=== PATIENT | male | born 1970 | race Caucasian/White ===

== ENCOUNTER → 2018-09-18 | Outpatient (CLI) | payer BC ==
[2018-09-18 23:40] LABS: THYROXINE (T4) 8.7 UG/DL (4.5-12.0)
[2018-09-18 23:42] LABS: TOTAL T3 114.4 NG/DL (60.0-181.0)
[2018-09-19 11:54] LABS: SSA SJOGRENS A <0.2 AI (0.0-0.9); SSB SJOGRENS B <0.2 AI (0.0-0.9)
== END ==
LOC: M LAB 12:26
DX: Z13.29 Encounter for screening for other suspected endocrine disorder (principal); H16.223 Keratoconjunctivitis sicca, not specified as Sjogren's, bilateral
CPT/HCPCS: 84443

== ENCOUNTER 2019-02-28 09:06 | Day surgery (SDC) | payer BC ==
[~2019-02-28] VITALS: Ht 177.8 cm; Wt 71.7 kg
[~2019-02-28 09:06] MED LIST: ACET-654 PO; BACL10TA2 PO; NICO21PAT EXT; PROPOFOL 200 MG/20 ML VIAL As Ordered ONE; VARE1TA PO; VOLT100T PO
[2019-02-28] MEDS: NS 1,000 ML IV ONE (09:34)
--- NOTE | 2019-02-28 10:38 | ROOR ---
Patient Name: Chata Alvarado Procedure Date: 02/28/2019 10:24 AM Date of : 1970 Age: 48 Room: [facility] Gender: Male Note Status: Finalized Procedure: Colonoscopy Indications: Screening for colorectal malignant neoplasm Providers: Anriudh Davila Jr, MD Referring MD: MADISYN THORNTON Requesting Provider: Medicines: Propofol per Anesthesia Complications: No immediate complications. Procedure: Pre-Anesthesia Assessment: - Prior to the procedure, a History and Physical was performed, and patient medications and allergies were reviewed. The patient is competent. The risks and benefits of the procedure and the sedation options and risks were discussed with the patient. All questions were answered and informed consent was obtained. Patient identification and proposed procedure were verified by the physician and the nurse in the pre-procedure area and in the procedure room. Mental Status Examination: alert and oriented. Airway Examination: normal oropharyngeal airway and neck mobility. Respiratory Examination: clear to auscultation. CV Examination: normal. ASA Grade Assessment: II - A patient with mild systemic disease. After reviewing the risks and benefits, the patient was deemed in satisfactory condition to undergo the procedure. The anesthesia plan was to use moderate sedation / analgesia (conscious sedation). Immediately prior to administration of medications, the patient was re-assessed for adequacy to receive sedatives. The heart rate, respiratory rate, oxygen saturations, blood pressure, adequacy of pulmonary ventilation, and response to care were monitored throughout the procedure. The physical status of the patient was re-assessed after the procedure. The Colonoscope was introduced through the anus and advanced to the cecum, identified by appendiceal orifice and ileocecal valve. The colonoscopy was performed without difficulty. The patient tolerated the procedure well. The quality of the bowel preparation was adequate. Findings: The rectum, recto-sigmoid colon, sigmoid colon, descending colon, transverse colon, ascending colon, cecum, appendiceal orifice and ileocecal valve appeared normal. Impression: - The rectum, recto-sigmoid colon, sigmoid colon, descending colon, transverse colon, ascending colon, cecum, appendiceal orifice and ileocecal valve are normal. - No specimens collected. Recommendation: - Discharge patient to home (ambulatory). - Repeat colonoscopy in 10 years for screening purposes. Anirudh Davila MD Anirudh Davila Jr, MD 02/28/2019 10:38:13 AM Electronically signed by Anirudh Davila Jr, MD Number of Addenda: 0 Note Initiated On: 02/28/2019 10:24 AM Estimated Blood Loss: Estimated blood loss: none.
[2019-02-28 10:55] VITALS: BP 122/83
== END 2019-02-28 11:03 | disposition home or self-care (01) ==
LOC: M OPP 09:06
PROVIDERS: ATTEND Surgery
DX: Z12.11 Encounter for screening for malignant neoplasm of colon (principal)

== ENCOUNTER → 2019-10-20 | Outpatient (CLI) | payer BC ==
[~2019-10-20] MED LIST changes: -PROPOFOL 200 MG/20 ML VIAL As Ordered ONE
--- NOTE | 2019-10-20 13:39 | REP ---
REASON: Pain after trauma. PRIORS: None. FINDINGS: No acute fracture or destructive osseous lesion. Electronically Signed by Huy Arceo DO 10/20/2019 02:16 P
== END ==
LOC: M WUC 12:16
PROVIDERS: ATTEND Physician Assistant
DX: M79.645 Pain in left finger(s) (principal)

== ENCOUNTER → 2020-08-27 | Outpatient (CLI) | payer BC ==
--- NOTE | 2020-08-27 09:51 | REPVR ---
PROCEDURE INFORMATION: Exam: MR Lumbar Spine Without Contrast. Exam date and time: 08/27/2020 8:19 AM Age: 50 years old Clinical indication: Other: Lumbar ddd, R/O hnp/stenosis TECHNIQUE: Imaging protocol: Multiplanar magnetic resonance images of the lumbar spine without intravenous contrast. COMPARISON: No relevant prior studies available. FINDINGS: Vertebrae: There is no fracture or listhesis. Normal vertebral body alignment and heights are preserved. Spinal cord: Normal signal. No cord compression. L1-L2: No significant disc disease. There is mild facet and ligamentous hypertrophy. The spinal canal and neural foramina are patent. L2-L3: No significant disc disease. There is moderate facet hypertrophy. The spinal canal and neural foramina are patent. L3-L4: There is diffuse disc bulging. The there is moderate facet hypertrophy. There is mild left neural foraminal narrowing. L4-L5: There is diffuse disc bulging. There is moderate facet hypertrophy. Trace fluid is noted within the facet joints. There is mild right neural foraminal narrowing. L5-S1: There is shallow disc bulging. There is wefe-ut-bcaaktin facet hypertrophy. There is a mild right neural foraminal narrowing. Disc material comes into close contact with the exiting right L5 nerve root. Soft tissues: Unremarkable. IMPRESSION: Degenerative disc disease and spondylosis as described without overt canal or foraminal compromise. Electronically signed by: Doris Chatman On 08/27/2020 09:51:20 AM
== END ==
LOC: M RAD 07:02
PROVIDERS: ATTEND Physician Assistant
DX: M51.36 Other intervertebral disc degeneration, lumbar region (principal)

== ENCOUNTER → 2021-04-13 | Outpatient (CLI) | payer BC ==
--- NOTE | 2021-04-13 18:29 | ECGEPIP ---
[facility] Test Date: 2021-04-13 Pat Name: LATONIA ARANDA Department: Room: - Gender: Male Book Author: PACO : 1970 Requested By: Jemal Yousif Order Number: [id number] Reading MD: Javier Lizama Measurements Intervals [place] Rate: 59 P: 48 GA: 148 QRS: 62 QRSD: 96 T: 60 QT: 406 QTc: 401 Interpretive Statements Sinus bradycardia aVL is uninterpretable Comparison tracing not on file Electronically Signed on 04-13-2021 18:29:24 EDT by Javier Lizama
== END ==
LOC: M EKG 15:57
PROVIDERS: ATTEND Anesthesiology
DX: Z01.818 Encounter for other preprocedural examination (principal); J44.9 Chronic obstructive pulmonary disease, unspecified

== ENCOUNTER → 2021-04-15 | Outpatient (CLI) | payer BC | LOC: M LABSMTC 09:54 | PROVIDERS: ATTEND Anesthesiology | DX: Z11.52 Encounter for screening for COVID-19 (principal) ==

== ENCOUNTER → 2021-04-20 | Day surgery (SDC) | payer BC ==
[~2021-04-20] VITALS: Ht 177.8 cm; Wt 73.5 kg
[~2021-04-20] MED LIST changes: +ACETAMINOPHEN 1000MG 100ML IV BTL (OFIRMEV) (J0131 PER 10MG) As Ordered ONE; +ALBUTEROL SULFATE 2.5 MG/0.5 ML INH NEB SOLN INH ONE; +BUPIVACAINE/EPIN 0.25% 30 ML VIAL As Ordered ONE; +HYDROMORPHONE HCL 0.5 MG/ 0.5 ML SYRINGE (J1170 PER 1) IV PRN; +KETOROLAC 60MG 2ML VIAL As Ordered ONE; +LIDOCAINE 1% MDV 20ML VIAL SQ PRN; +LIDOCAINE 2% 100MG/5ML SDV (FOR ANES.) As Ordered ONE; +LORazepam 2 MG/ML VIAL As Ordered ONE; +LORazepam 2 MG/ML VIAL IV ONE; +LR 1,000 ML IV ONE; +LR 1,000 ML IV SCH; +METOCLOPRAMIDE INJ 10MG/2ML VIAL (J2765 PER 1) IV PRN; +MIDAZOLAM INJ 2MG/2ML VIAL (J2250 PER 1MG) As Ordered ONE; +NS 1,000 ML IV SCH; +ONDANSETRON 4MG/2ML VIAL As Ordered ONE; +ONDANSETRON 4MG/2ML VIAL IV PRN; +ROCURONIUM BROMIDE 50 MG/5 ML VIAL As Ordered ONE; +SUGAMMADEX SODIUM 500 MG/5 ML VIAL (BRIDION) As Ordered ONE; +ceFAZolin SOD 1 GM in D5W MINI-BAG PLUS 50 ML IV ONE; +dexameTHASONE 4 MG/ML 1ML VIAL (J1100 PER 1MG) As Ordered ONE; +fentaNYL 100 MCG/2 ML INJECTION (J3010) As Ordered ONE; +fentaNYL 100 MCG/2 ML INJECTION (J3010) IV PRN; +fentaNYL 250 MCG/5 ML INJECTION (J3010) As Ordered ONE; +hydrALAZINE 20MG/ML 1ML VIAL (J0360 PER 20MG) As Ordered ONE; +oxyCODONE 5MG TAB PO PRN; +propofoL 200 MG/20 ML VIAL As Ordered ONE; +traMADol 50 MG TAB PO PRN
--- NOTE | 2021-04-20 13:28 | RO ---
OPERATIVE NOTE DATE OF OPERATION: 04/20/2021 PREOPERATIVE DIAGNOSIS: Bilateral inguinal hernias. POSTOPERATIVE DIAGNOSIS: Bilateral inguinal hernias (direct). PROCEDURE: Robotic-assisted laparoscopic bilateral inguinal hernia repair with ProGrip mesh. SURGEON: Anirudh Davila Jr., MD. GERIATRIC SOCIAL WORKER: Jess Manuel (provided trocar placement, instrument exchange, abdominal wall closure, and mesh placement). ANESTHESIA: General endotracheal anesthesia. EBL: Minimal. FLUIDS: Crystalloid. BRIEF PROCEDURE SUMMARY: The patient was brought to the operating room and was given general anesthesia. After adequate anesthesia and preoperative antibiotics were given, the patient was prepped and draped in the usual sterile fashion. Next, a supraumbilical incision was made with skin knife. Blunt dissection was carried down to fascia. Veress needle inserted into the abdominal cavity and insufflated to 15 mm of pressure. An 8 mm trocar was placed under direct visualization. Two lateral 8 mm trocars were placed. The patient was placed in a Trendelenburg position, and the camera was docked. Peritoneum was taken down first on the right hand side. Mobilization of the peritoneal flap was created with monopolar cut scissors, and eventually the cord structures were nicely visualized, and the peritoneum was taken off the cord structures down into the pelvis. The direct hernia was mobilized off its surrounding tissue, and next once this was all mobilized so that the lateral border of pubis and Josué's ligament was nicely visualized. The left side was opened up in much the same manner using monopolar cut scissors to create the peritoneal flap. Once this was created, there was a larger hernia on the left-hand side, but this was still able to be mobilized out of the pelvis nicely and back into the preperitoneal space. Two ProGrip mesh were placed in the pelvis and pressed into position after cutting to the appropriate size. Peritoneum was used to close over the top of this at decreased abdominal pressures. The trocars were removed under direct visualization. 4-0 Vicryl was used to close all skin incisions. Steri-Strips and a dry sterile dressing was applied. The patient was awakened from his anesthesia, extubated, and brought to the recovery room awake, alert, and hemodynamically stable. Sponge and needle counts correct x2.
[2021-04-20 15:30] VITALS: BP 118/69
== END | disposition home or self-care (01) ==
LOC: M SDC 09:56
PROVIDERS: ATTEND Surgery
DX: K40.20 Bilateral inguinal hernia, without obstruction or gangrene, not specified as recurrent (principal); N40.1 Benign prostatic hyperplasia with lower urinary tract symptoms; R35.1 Nocturia; E78.2 Mixed hyperlipidemia; J44.9 Chronic obstructive pulmonary disease, unspecified; R06.83 Snoring; F17.219 Nicotine dependence, cigarettes, with unspecified nicotine-induced disorders
CPT/HCPCS: 49650; C1781; J0131; J0360; J0690; J1100; J1885; J2060; J2250; J2405; J3010; S2900

== ENCOUNTER → 2022-05-09 | Outpatient (CLI) | payer BC ==
[~2022-05-09] MED LIST changes: -ACETAMINOPHEN 1000MG 100ML IV BTL (OFIRMEV) (J0131 PER 10MG) As Ordered ONE; -ALBUTEROL SULFATE 2.5 MG/0.5 ML INH NEB SOLN INH ONE; -BUPIVACAINE/EPIN 0.25% 30 ML VIAL As Ordered ONE; -HYDROMORPHONE HCL 0.5 MG/ 0.5 ML SYRINGE (J1170 PER 1) IV PRN; -KETOROLAC 60MG 2ML VIAL As Ordered ONE; -LIDOCAINE 1% MDV 20ML VIAL SQ PRN; -LIDOCAINE 2% 100MG/5ML SDV (FOR ANES.) As Ordered ONE; -LORazepam 2 MG/ML VIAL As Ordered ONE; -LORazepam 2 MG/ML VIAL IV ONE; -LR 1,000 ML IV ONE; -LR 1,000 ML IV SCH; -METOCLOPRAMIDE INJ 10MG/2ML VIAL (J2765 PER 1) IV PRN; -MIDAZOLAM INJ 2MG/2ML VIAL (J2250 PER 1MG) As Ordered ONE; -NS 1,000 ML IV SCH; -ONDANSETRON 4MG/2ML VIAL As Ordered ONE; -ONDANSETRON 4MG/2ML VIAL IV PRN; -ROCURONIUM BROMIDE 50 MG/5 ML VIAL As Ordered ONE; -SUGAMMADEX SODIUM 500 MG/5 ML VIAL (BRIDION) As Ordered ONE; -ceFAZolin SOD 1 GM in D5W MINI-BAG PLUS 50 ML IV ONE; -dexameTHASONE 4 MG/ML 1ML VIAL (J1100 PER 1MG) As Ordered ONE; -fentaNYL 100 MCG/2 ML INJECTION (J3010) As Ordered ONE; -fentaNYL 100 MCG/2 ML INJECTION (J3010) IV PRN; -fentaNYL 250 MCG/5 ML INJECTION (J3010) As Ordered ONE; -hydrALAZINE 20MG/ML 1ML VIAL (J0360 PER 20MG) As Ordered ONE; -oxyCODONE 5MG TAB PO PRN; -propofoL 200 MG/20 ML VIAL As Ordered ONE; -traMADol 50 MG TAB PO PRN
== END ==
LOC: M PLAIMG 13:07
PROVIDERS: ATTEND Neurological Surgery
DX: M47.816 Spondylosis without myelopathy or radiculopathy, lumbar region (principal); M51.37 Other intervertebral disc degeneration, lumbosacral region; M43.17 Spondylolisthesis, lumbosacral region

== ENCOUNTER → 2023-01-02 | Outpatient (CLI) | payer BC ==
[2023-01-02 12:24] LABS: BASO # 0.1 10^3/uL (0.0-0.2); BASO % 0.9 % (0.0-1.0); EOS # 0.2 10^3/uL (0.0-0.5); EOS % 2.4 % (0.0-3.0); HEMATOCRIT 51.6 % (42.0-52.0); LYMPH # 2.2 10^3/uL (1.5-5.0); LYMPH % 33.1 % (24.0-44.0); MEAN CORPUSCULAR HEMOGLOBIN 31.1 pg (27.0-33.0); MEAN CORPUSCULAR HGB CONC 32.9 g/dl (32.0-36.5); MEAN CORPUSCULAR VOLUME 94.5 fl (80.0-96.0); MONO # 0.5 10^3/uL (0.0-0.8); MONO % 7.9 % (2.0-8.0); NEUTROPHILS # 3.7 10^3/uL (1.5-8.5); NEUTROPHILS % 55.3 % (36.0-66.0); PLATELET COUNT, AUTOMATED 260 10^3/uL (150-450); RED BLOOD COUNT 5.46 10^6/uL (4.30-6.10); WHITE BLOOD COUNT 6.7 10^3/uL (4.0-10.0)
[2023-01-02 12:28] LABS: PROSTATIC SPECIFIC AG MONITOR 2.16 NG/ML (< 4.00)
[2023-01-02 12:30] LABS: ALKALINE PHOSPHATASE 80 U/L (46-116); ALT/SGPT 20 U/L (7.0-40); AST/SGOT 25 U/L (<34); BILIRUBIN,TOTAL 0.3 MG/DL (0.3-1.2); BLOOD UREA NITROGEN 17 MG/DL (9-23); CALCIUM LEVEL 10.2 MG/DL (8.5-10.1); CARBON DIOXIDE LEVEL 31 MMOL/L (20-31); CHLORIDE LEVEL 103 MMOL/L (98-107); CHOLESTEROL LEVEL 212 MG/DL (<200); CHOLESTEROL RISK RATIO 3.54 (<5); CREATININE FOR GFR 0.99 MG/DL (0.70-1.30); GLOMERULAR FILTRATION RATE > 60.0 (>56); GLUCOSE, FASTING 83 MG/DL (60-100); HDL CHOLESTEROL 59.8 MG/DL (>40); LDL CHOLESTEROL 124.6 MG/DL (<100); NON-HDL-C 152 MG/DL; POTASSIUM SERUM 4.5 MMOL/L (3.5-5.1); SODIUM LEVEL 138 MMOL/L (136-145); TOTAL PROTEIN 7.4 G/DL (5.7-8.2); TRIGLYCERIDES LEVEL 138 MG/DL (<150)
== END ==
LOC: M WUC 09:57
PROVIDERS: ATTEND Physician Assistant
DX: Z00.01 Encounter for general adult medical examination with abnormal findings (principal); E78.5 Hyperlipidemia, unspecified; R35.1 Nocturia; F10.10 Alcohol abuse, uncomplicated

== ENCOUNTER → 2023-02-19 | Outpatient (REF) | payer BC, OTHER | LOC: M LAB REF 08:56 | PROVIDERS: ATTEND Internal Medicine | DX: J02.9 Acute pharyngitis, unspecified (principal) ==

== ENCOUNTER → 2024-08-16 | Outpatient (REF) | payer OTHER ==
[2024-08-16 15:05] LABS: APPEARANCE, URINE CLEAR (CLEAR); BACTERIA, URINE AUTO NEGATIVE (NEGATIVE); BILIRUBIN, URINE AUTO NEGATIVE (NEGATIVE); BLOOD, URINE BLOOD NEGATIVE (NEGATIVE); COLOR, URINE YELLOW (YELLOW); GLUCOSE, URINE (UA) AUTO NEGATIVE (NEGATIVE); KETONE, URINE AUTO NEGATIVE (NEGATIVE); LEUKOCYTE ESTERASE, URINE AUTO NEGATIVE (NEGATIVE); MUCUS, URINE SMALL (NEGATIVE); NITRITE, URINE AUTO NEGATIVE (NEGATIVE); PROTEIN, URINE AUTO NEGATIVE (NEGATIVE); RBC, URINE AUTO 1 /HPF (0-3); SPECIFIC GRAVITY URINE AUTO 1.017 (1.002-1.035); SQUAMOUS EPITHELIAL CELL UR AU 0 /HPF (0-6); UROBILINOGEN, URINE AUTO 0.2 mg/dL (0.0-2.0); WBC, URINE AUTO 1 /HPF (0-3)
== END ==
LOC: M SMT 14:41
PROVIDERS: ATTEND Physician Assistant
DX: R30.0 Dysuria (principal)

== ENCOUNTER → 2024-09-12 | Outpatient (CLI) | payer BC | LOC: M LAB 07:31 | PROVIDERS: ATTEND Physician Assistant | DX: R68.82 Decreased libido (principal) ==

== ENCOUNTER → 2024-11-10 | Outpatient (REF) | payer BC | LOC: M LAB REF 18:42 | PROVIDERS: ATTEND Physician Assistant Medical | DX: B34.9 Viral infection, unspecified (principal) ==